=== PATIENT | male | born 1955 | race African-American/Black ===

== ENCOUNTER 2019-08-31 13:48 | Emergency (ER) | payer MEDICARE, OTHER ==
[~2019-08-31] VITALS: Ht 180.3 cm; Wt 124.7 kg
[~2019-08-31 13:48] MED LIST: HYDR-4076 PO; HYDR25TA4 PO; METH500T6 PO; ONDA4TAB5 PO; PANT40TA2 PO
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
[2019-08-31] MEDS ORDERED: ONDANSETRON HCL/PF 4 MG/2 ML VIAL ONE (14:47)
[2019-08-31] MEDS ORDERED: FAMOTIDINE/PF INJ 20 MG/2 ML VIAL IV ONE ×2 (14:47→15:00)
[2019-08-31] MEDS ORDERED: MORPHINE SULFATE INJ 4 MG/ML DISP.SYRIN ONE ×2 (14:47→16:28)
[2019-08-31] MEDS ORDERED: MORPHINE SULFATE INJ 2 MG/ML DISP.SYRIN IV ONE ×2 (15:00→16:30)
[2019-08-31] MEDS ORDERED: IV NS 0.9% 1,000 ML BAG IV ONE (15:00)
[2019-08-31] MEDS ORDERED: ONDANSETRON HCL/PF 4 MG/2 ML VIAL IVP ONE (15:00)
--- NOTE | 2019-08-31 15:54 | NUR ---
RADIUS CORNER MACHINE OPERATOR AT BEDSIDE FOR EVAL.
[2019-08-31 16:09] LABS: BASOPHILS % (AUTO) 0.5 % (0.0-2.0); HEMATOCRIT 46 % (39-51); LYMPHOCYTES % (AUTO) 15.8 % (20.0-44.0); MEAN CORPUSCULAR HGB CONC 33 g/dl (31.0-36.0); MEAN CORPUSCULAR VOLUME 98 fL (80-96); MONOCYTES # (AUTO) 0.6 /CMM (0.1-1.30); MONOCYTES % (AUTO) 8.9 % (2.0-12.0); NEUTROPHILS # (AUTO) 4.8 /CMM (1.8-8.9); NEUTROPHILS % (AUTO) 74.8 % (43.0-81.0); PLATELET COUNT (AUTO) 224 /CMM (150-450); RED BLOOD CELL COUNT(AUTO) 4.66 MIL/uL (4.5-6.0); WHITE BLOOD COUNT (AUTO) 6.4 K/uL (4.3-11.0)
[2019-08-31 16:18] LABS: CALCIUM, SERUM 10.1 mg/dL (8.5-10.1); CARBON DIOXIDE 18 mmol/L (21-32); CHLORIDE 106 mmol/L (98-107); CREATININE 1.2 mg/dL (0.6-1.3); GLUCOSE 101 mg/dL (74-106); POTASSIUM 3.6 mmol/L (3.5-5.1); SODIUM SERUM 141 mmol/L (136-145); UREA NITROGEN, BLOOD 11 mg/dL (7-18)
[2019-08-31 16:24] LABS: ALANINE AMINOTRANSFERASE 21 U/L (12-78); ALBUMIN 4.2 g/dL (3.4-5.0); ALKALINE PHOSPHATASE 81 U/L (46-116); ASPARTATE AMINOTRANSFERASE 15 U/L (15-37); BILIRUBIN,DIRECT 0.2 mg/dL (0.0-0.2); BILIRUBIN,TOTAL 0.8 mg/dL (0.2-1.0); LIPASE 108 U/L (73-393); TOTAL PROTEIN, SERUM 7.6 g/dL (6.4-8.2)
[2019-08-31] MEDS ORDERED: IOHEXOL-300 100 ML VIAL IV ONE (16:24)
[2019-08-31] MEDS ORDERED: CT SWABBABLE VALVE TRANS SET 1 EA INFUS.SET MC ONE (16:25)
[2019-08-31] MEDS ORDERED: IV NS 0.9% 250 ML IV ONE (16:25)
--- NOTE | 2019-08-31 16:37 | NUR ---
IV LINE ON L WRIST 20G WAS ACCIDENTALLY DISLODGE BY PT. NEW IV LINE OBTAINED ON R AC 20G.
--- NOTE | 2019-08-31 16:40 | NUR ---
PT TO RADIOLOGY
[2019-08-31] MEDS ORDERED: HYDROMORPHONE 1 MG/1 ML DISP.SYRIN ONE (17:41)
[2019-08-31] MEDS ORDERED: METOCLOPRAMIDE HCL 10 MG/2 ML VIAL ONE (17:41)
--- NOTE | 2019-08-31 17:48 | NUR ---
EKG AT BEDSIDE PER MD ORDERED
[2019-08-31] MEDS ORDERED: hydrALAZINE HCL IV 20 MG VIAL ONE (17:59)
[2019-08-31] MEDS ORDERED: HYDROMORPHONE 1 MG/1 ML DISP.SYRIN IV ONE (18:00)
[2019-08-31] MEDS ORDERED: METOCLOPRAMIDE HCL 10 MG/2 ML VIAL IV ONE (18:00)
[2019-08-31] MEDS ORDERED: hydrALAZINE HCL IV 20 MG VIAL IV ONE (18:00)
[2019-08-31] MEDS ORDERED: LABETALOL HCL IV 100MG VIAL ONE (18:37)
--- NOTE | 2019-08-31 18:41 | NUR ---
HOOK AND EYE MACHINE OPERATOR AT BEDSIDE FOR L KNEE XRAY.
[2019-08-31] MEDS ORDERED: LABETALOL HCL IV 100MG VIAL IV ONE (19:00)
--- NOTE | 2019-08-31 19:20 | NUR ---
PO CHALLENGE TOLERATED BY PT WITHOUT ANY FURTHER NAUSEA NOR VOMMITING.
[2019-08-31 19:30] VITALS: BP 173/72
--- NOTE | 2019-08-31 20:15 | NUR ---
Patient discharged to home in stable condition. Written and verbal after care instructions given. Patient verbalizes understanding of instruction.IV removed. Catheter intact and site benign. Pressure and 4x4 applied to site. No bleeding noted. Pt ambulatory with a steady gait
--- NOTE | 2019-08-31 20:22 | NUR ---
PT PICKED UP BY
== END 2019-08-31 20:21 | disposition home or self-care (01) ==
LOC: ER 13:53
DX: R10.10 Upper abdominal pain, unspecified (principal); I10 Essential (primary) hypertension; R11.2 Nausea with vomiting, unspecified; E11.9 Type 2 diabetes mellitus without complications; Z90.49 Acquired absence of other specified parts of digestive tract; Z86.73 Personal history of transient ischemic attack (TIA), and cerebral infarction without residual deficits; Z88.0 Allergy status to penicillin; Z79.899 Other long term (current) drug therapy
CPT/HCPCS: 36415; 73564 ×2; 74177; 80048; 80076; 83690; 84484; 85025; 93005; 96361; 96374 ×2; 96375; 99285; J0360; J1170; J2270 ×2; J2405; J2765; J3490 ×2; J7030; J7050; Q9967

== ENCOUNTER 2022-08-01 08:25 | Inpatient (IN) | payer BC, OTHER ==
[~2022-08-01] VITALS: Ht 170.2 cm; Wt 114.8 kg
[2022-08-01 08:38] LABS: BASOPHILS % (AUTO) 0.5 % (0.0-2.0); EOSINOPHILS % (AUTO) 0.7 % (0.0-6.0); HEMATOCRIT 45 % (39-51); HEMOGLOBIN 14.7 g/dL (13.5-17.5); LYMPHOCYTES # (AUTO) 1.7 K/uL (0.8-4.8); LYMPHOCYTES % (AUTO) 25.4 % (20.0-44.0); MEAN CORPUSCULAR HGB CONC 33 g/dl (31.0-36.0); MEAN CORPUSCULAR VOLUME 95 fL (80-96); MONOCYTES # (AUTO) 0.6 K/uL (0.1-1.30); NEUTROPHILS # (AUTO) 4.2 K/uL (1.8-8.9); NEUTROPHILS % (AUTO) 64.4 % (43.0-81.0); PLATELET COUNT (AUTO) 289 K/uL (150-450); RED BLOOD CELL COUNT(AUTO) 4.76 MIL/uL (4.5-6.0); WHITE BLOOD COUNT (AUTO) 6.6 K/uL (4.3-11.0)
[2022-08-01] MEDS ORDERED: IOHEXOL-350 100 ML VIAL IV ONE (08:40)
[2022-08-01] MEDS ORDERED: IV NS 0.9% 250 ML IV ONE (08:40)
[2022-08-01 08:47] LABS: CALCIUM, SERUM 10.6 mg/dL (8.5-10.1); CARBON DIOXIDE 23 mmol/L (21-32); CHLORIDE 107 mmol/L (98-107); CREATININE 1.4 mg/dL (0.6-1.3); GLUCOSE 144 mg/dL (74-106); POTASSIUM 3.9 mmol/L (3.5-5.1); SODIUM SERUM 142 mmol/L (136-145); UREA NITROGEN, BLOOD 7 mg/dL (7-18)
[2022-08-01 08:53] LABS: ALANINE AMINOTRANSFERASE 28 U/L (12-78); ALBUMIN 3.8 g/dL (3.4-5.0); ALKALINE PHOSPHATASE 91 U/L (46-116); ASPARTATE AMINOTRANSFERASE 17 U/L (15-37); BILIRUBIN,DIRECT 0.2 mg/dL (0.0-0.2); BILIRUBIN,TOTAL 0.7 mg/dL (0.2-1.0); TOTAL PROTEIN, SERUM 7.7 g/dL (6.4-8.2)
[2022-08-01 09:39] LABS: ALCOHOL, BLOOD < 3 mg/dL (0-10); SERUM AMMONIA 18 umol/L (11-32)
[2022-08-01 09:53] LABS: THYROID STIMULATING HORMONE 0.706 uIU/mL (0.358-3.74)
[2022-08-01 10:11] LABS: BILIRUBIN,URINE NEGATIVE (NEGATIVE); COLOR,URINE YELLOW (YELLOW); LEUKOCYTE ESTERASE ,URINE NEGATIVE (NEGATIVE); NITRITE, URINE NEGATIVE (NEGATIVE); PH,URINE 6.5 (5.0-8.0); PROTEIN,URINE TRACE mg/dl (NEGATIVE); UGLUCOSE NEGATIVE (NEGATIVE); UROBILINOGEN,URINE 0.2 EU/dL (0.2)
[2022-08-01 10:14] LABS: BACTERIA,URINE Rare /HPF (None Seen); SQUAMOUS EPITHELIAL CELL,UR Few /HPF (None Seen); WBC,URINE 0-2 /HPF (0-3)
[2022-08-01] MEDS ORDERED: ONDANSETRON HCL/PF 4 MG/2 ML VIAL ONE (10:53)
[2022-08-01] MEDS ORDERED: ONDANSETRON HCL/PF - ER 4 MG/2 ML VIAL IV ONE (11:00)
[2022-08-01] MEDS ORDERED: PROCHLORPERAZINE EDISYLATE 10 MG/2 ML VIAL ONE (12:54)
[2022-08-01] MEDS ORDERED: MORPHINE SULFATE INJ 2 MG/ML DISP.SYRIN ONE (12:54)
[2022-08-01] MEDS ORDERED: MORPHINE SULFATE INJ 2 MG/ML DISP.SYRIN IV ONE ×2 (13:00→18:10)
[2022-08-01] MEDS ORDERED: PROCHLORPERAZINE EDISYLATE 10 MG/2 ML VIAL IVP ONE (13:00)
[2022-08-01] MEDS ORDERED: IV NS 0.9% 1,000 ML BAG IV ONE (13:00)
[2022-08-01] MEDS ORDERED: IV 1/2NS 1000 ML 1,000 ML IV ONE (14:00)
[2022-08-01] MEDS: ENOXAPARIN SODIUM 40 MG/0.4 ML DISP.SYRIN SQ SCH (15:01)
[2022-08-01 15:26] LABS: CREATININE 1.4 mg/dL (0.6-1.3); POTASSIUM 4.1 mmol/L (3.5-5.1)
[2022-08-01 15:32] LABS: BILIRUBIN,TOTAL 0.7 mg/dL (0.2-1.0)
[2022-08-01 15:39] LABS: THYROID STIMULATING HORMONE 0.622 uIU/mL (0.358-3.74)
[2022-08-01 16:00] VITALS: BP 190/78
[2022-08-01] MEDS ORDERED: hydrALAZINE HCL IV 20 MG VIAL IV ONE ×2 (17:00→20:30)
[2022-08-01] MEDS: ONDANSETRON HCL/PF 4 MG/2 ML VIAL IV PRN (18:12)
[2022-08-01 20:00] VITALS: BP 220/90
[2022-08-01] MEDS: MORPHINE SULFATE INJ 2 MG/ML DISP.SYRIN IV PRN (20:31)
[2022-08-01 21:30] VITALS: BP 180/89
[2022-08-01] MEDS: ATORVASTATIN 10 MG TABLET PO SCH (22:53)
[2022-08-02] VITALS: BP 178/88
[2022-08-02] MEDS: ONDANSETRON HCL/PF 4 MG/2 ML VIAL IV PRN (00:42)
[2022-08-02] MEDS: MORPHINE SULFATE INJ 2 MG/ML DISP.SYRIN IV PRN ×4 (03:39→23:33)
[2022-08-02 04:00] VITALS: BP 190/90
[2022-08-02 07:04] LABS: BASOPHILS # (AUTO) 0.1 K/uL (0.0-0.2); BASOPHILS % (AUTO) 0.5 % (0.0-2.0); HEMATOCRIT 44 % (39-51); HEMOGLOBIN 14.7 g/dL (13.5-17.5); LYMPHOCYTES # (AUTO) 1.8 K/uL (0.8-4.8); LYMPHOCYTES % (AUTO) 13.2 % (20.0-44.0); MEAN CORPUSCULAR HGB CONC 33 g/dl (31.0-36.0); MEAN CORPUSCULAR VOLUME 95 fL (80-96); MONOCYTES # (AUTO) 1.4 K/uL (0.1-1.30); MONOCYTES % (AUTO) 10.3 % (2.0-12.0); NEUTROPHILS # (AUTO) 10.6 K/uL (1.8-8.9); PLATELET COUNT (AUTO) 289 K/uL (150-450); WHITE BLOOD COUNT (AUTO) 13.9 K/uL (4.3-11.0)
[2022-08-02 07:10] LABS: CALCIUM, SERUM 9.9 mg/dL (8.5-10.1); CREATININE 1.1 mg/dL (0.6-1.3); POTASSIUM 3.5 mmol/L (3.5-5.1)
[2022-08-02 08:00] VITALS: BP 167/92
[2022-08-02] MEDS: PANTOPRAZOLE 40 MG TABLET.DR PO SCH (08:36)
[2022-08-02] MEDS: ASPIRIN 81 MG TAB.CHEW PO SCH (08:36)
[2022-08-02 12:00] VITALS: BP 155/77
[2022-08-02 16:00] VITALS: BP 190/83
[2022-08-02] MEDS: ENOXAPARIN SODIUM 40 MG/0.4 ML DISP.SYRIN SQ SCH (17:35)
[2022-08-02 20:00] VITALS: BP 178/100
[2022-08-02] MEDS: ATORVASTATIN 10 MG TABLET PO SCH (21:25)
[2022-08-02] MEDS: hydrALAZINE HCL 25 MG TABLET PO SCH (23:32)
[2022-08-03] VITALS: BP 186/99
[2022-08-03 04:00] VITALS: BP 170/74
[2022-08-03] MEDS: hydrALAZINE HCL 25 MG TABLET PO SCH ×3 (04:16→22:23)
[2022-08-03] MEDS: MORPHINE SULFATE INJ 2 MG/ML DISP.SYRIN IV PRN ×3 (06:50→20:23)
[2022-08-03 08:49] LABS: BASOPHILS # (AUTO) 0.1 K/uL (0.0-0.2); BASOPHILS % (AUTO) 0.8 % (0.0-2.0); EOSINOPHILS % (AUTO) 0.7 % (0.0-6.0); HEMATOCRIT 47 % (39-51); HEMOGLOBIN 15.6 g/dL (13.5-17.5); LYMPHOCYTES # (AUTO) 1.4 K/uL (0.8-4.8); LYMPHOCYTES % (AUTO) 13.2 % (20.0-44.0); MEAN CORPUSCULAR HGB CONC 33 g/dl (31.0-36.0); MEAN CORPUSCULAR VOLUME 94 fL (80-96); MONOCYTES # (AUTO) 0.9 K/uL (0.1-1.30); MONOCYTES % (AUTO) 8.5 % (2.0-12.0); NEUTROPHILS # (AUTO) 8.2 K/uL (1.8-8.9); NEUTROPHILS % (AUTO) 76.8 % (43.0-81.0); PLATELET COUNT (AUTO) 277 K/uL (150-450); RED BLOOD CELL COUNT(AUTO) 4.98 MIL/uL (4.5-6.0); WHITE BLOOD COUNT (AUTO) 10.7 K/uL (4.3-11.0)
[2022-08-03] MEDS: ASPIRIN 81 MG TAB.CHEW PO SCH ×2 (09:00→10:04)
[2022-08-03] MEDS: PANTOPRAZOLE 40 MG TABLET.DR PO SCH (09:09)
[2022-08-03 09:14] LABS: CALCIUM, SERUM 9.8 mg/dL (8.5-10.1); CREATININE 1.1 mg/dL (0.6-1.3); PHOSPHORUS 2.2 mg/dL (2.5-4.9); POTASSIUM 3.2 mmol/L (3.5-5.1)
[2022-08-03] MEDS ORDERED: POTASSIUM CHLORIDE 20 MEQ TAB.PRT.SR PO ONE (10:00)
[2022-08-03] MEDS: HYDROCHLOROTHIAZIDE 25 MG TABLET PO SCH (10:05)
[2022-08-03] MEDS ORDERED: GADOTERATE MEGLUMINE 10 MMOL/20 ML VIAL IV ONE (11:11)
[2022-08-03 12:32] VITALS: BP_SYST 147; BP_SYST 161; BP_DIAS 80; BP_DIAS 88
[2022-08-03] MEDS: METHOCARBAMOL (500MG) 500 MG TABLET PO SCH (13:02)
[2022-08-03] MEDS: ENOXAPARIN SODIUM 40 MG/0.4 ML DISP.SYRIN SQ SCH (13:04)
[2022-08-03 16:00] VITALS: BP 150/79
[2022-08-03] MEDS ORDERED: K PHOS NEUTRAL 250 MG TABLET PO ONE (17:00)
[2022-08-03 20:00] VITALS: BP 151/83
[2022-08-03] MEDS: ATORVASTATIN 10 MG TABLET PO SCH (22:22)
[2022-08-04] VITALS: BP 131/92
[2022-08-04] MEDS: MORPHINE SULFATE INJ 2 MG/ML DISP.SYRIN IV PRN ×4 (03:39→23:49)
[2022-08-04 04:08] VITALS: BP 148/80
[2022-08-04] MEDS: hydrALAZINE HCL 25 MG TABLET PO SCH ×3 (05:18→21:09)
[2022-08-04 06:36] LABS: BASOPHILS % (AUTO) 0.5 % (0.0-2.0); EOSINOPHILS % (AUTO) 0.3 % (0.0-6.0); HEMATOCRIT 48 % (39-51); HEMOGLOBIN 16.1 g/dL (13.5-17.5); LYMPHOCYTES # (AUTO) 1.3 K/uL (0.8-4.8); LYMPHOCYTES % (AUTO) 12.7 % (20.0-44.0); MEAN CORPUSCULAR HGB CONC 34 g/dl (31.0-36.0); MEAN CORPUSCULAR VOLUME 92 fL (80-96); MONOCYTES % (AUTO) 19.3 % (2.0-12.0); NEUTROPHILS # (AUTO) 6.9 K/uL (1.8-8.9); NEUTROPHILS % (AUTO) 67.2 % (43.0-81.0); PLATELET COUNT (AUTO) 283 K/uL (150-450); WHITE BLOOD COUNT (AUTO) 10.3 K/uL (4.3-11.0)
[2022-08-04 06:45] LABS: CALCIUM, SERUM 10.1 mg/dL (8.5-10.1); CREATININE 1.2 mg/dL (0.6-1.3); MAGNESIUM 1.9 mg/dL (1.8-2.4); PHOSPHORUS 3.1 mg/dL (2.5-4.9); POTASSIUM 3.1 mmol/L (3.5-5.1)
[2022-08-04 07:42] LABS: LYMPHOCYTES % (MANUAL) 15 % (16-48); MONOCYTES % (MANUAL) 15 % (0-11.0); NEUTROPHILS % (MANUAL) 69 (42-76); REACTIVE LYMPHOCYTES 1 % (0-0)
[2022-08-04 08:00] VITALS: BP 159/90
[2022-08-04] MEDS: HYDROCHLOROTHIAZIDE 25 MG TABLET PO SCH (08:59)
[2022-08-04] MEDS: ASPIRIN 81 MG TAB.CHEW PO SCH (08:59)
[2022-08-04] MEDS: PANTOPRAZOLE 40 MG TABLET.DR PO SCH (09:00)
[2022-08-04] MEDS: METHOCARBAMOL (500MG) 500 MG TABLET PO SCH (09:00)
[2022-08-04] MEDS ORDERED: POTASSIUM CHLORIDE 20 MEQ TAB.PRT.SR PO ONE ×2 (09:00→17:00)
[2022-08-04 12:00] VITALS: BP 156/92
[2022-08-04] MEDS ORDERED: TEMAZEPAM 7.5 MG CAPSULE PO PRN (12:00)
[2022-08-04] MEDS: ENOXAPARIN SODIUM 40 MG/0.4 ML DISP.SYRIN SQ SCH (14:00)
[2022-08-04 16:00] VITALS: BP 162/87
[2022-08-04 20:00] VITALS: BP 146/74
[2022-08-04] MEDS: ATORVASTATIN 10 MG TABLET PO SCH (21:09)
[2022-08-05] VITALS (24 sets, daily range): BP systolic 135–218; BP diastolic 55–85
[2022-08-05] MEDS: IV NS 0.9% 1,000 ML IV SCH ×2 (06:39→16:13)
[2022-08-05] MEDS: hydrALAZINE HCL 25 MG TABLET PO SCH ×3 (06:43→20:02)
[2022-08-05] MEDS: MORPHINE SULFATE INJ 2 MG/ML DISP.SYRIN IV PRN ×2 (06:44→19:26)
[2022-08-05] MEDS: PANTOPRAZOLE 40 MG TABLET.DR PO SCH (07:30)
[2022-08-05 07:32] LABS: BASOPHILS % (AUTO) 0.6 % (0.0-2.0); EOSINOPHILS % (AUTO) 0.4 % (0.0-6.0); HEMATOCRIT 50 % (39-51); LYMPHOCYTES # (AUTO) 1.2 K/uL (0.8-4.8); LYMPHOCYTES % (AUTO) 14.2 % (20.0-44.0); MEAN CORPUSCULAR HGB CONC 32 g/dl (31.0-36.0); MEAN CORPUSCULAR VOLUME 94 fL (80-96); MONOCYTES # (AUTO) 2.1 K/uL (0.1-1.30); MONOCYTES % (AUTO) 24.3 % (2.0-12.0); NEUTROPHILS # (AUTO) 5.2 K/uL (1.8-8.9); NEUTROPHILS % (AUTO) 60.5 % (43.0-81.0); PLATELET COUNT (AUTO) 287 K/uL (150-450); RED BLOOD CELL COUNT(AUTO) 5.27 MIL/uL (4.5-6.0); WHITE BLOOD COUNT (AUTO) 8.5 K/uL (4.3-11.0)
[2022-08-05 07:57] LABS: CALCIUM, SERUM 9.8 mg/dL (8.5-10.1); CREATININE 1.4 mg/dL (0.6-1.3); MAGNESIUM 2.1 mg/dL (1.8-2.4); PHOSPHORUS 3.6 mg/dL (2.5-4.9); POTASSIUM 3.8 mmol/L (3.5-5.1)
[2022-08-05] MEDS ORDERED: ANESTHESIA TRAY IN PYXIS 1 EA TRAY MC ONE (08:33)
[2022-08-05] MEDS ORDERED: LIDOCAINE 1% INJ 50 ML MDV IJ ONE (08:33)
[2022-08-05] MEDS: ASPIRIN 81 MG TAB.CHEW PO SCH (09:00)
[2022-08-05] MEDS: HYDROCHLOROTHIAZIDE 25 MG TABLET PO SCH (09:00)
[2022-08-05] MEDS: METHOCARBAMOL (500MG) 500 MG TABLET PO SCH (09:00)
[2022-08-05] MEDS: CHOLESTYRAMINE/ASPARTAME 4 G/PKT PACKET PO SCH (09:00)
[2022-08-05] MEDS ORDERED: ALBUMIN 5% 500 ML IV ONE (09:30)
[2022-08-05] MEDS ORDERED: FENTANYL PF 100MCG/2ML AMPUL ONE (09:31)
[2022-08-05] MEDS ORDERED: KETAMINE HCL (500MG/10ML) 50 MG/ML VIAL ONE (09:31)
[2022-08-05] MEDS ORDERED: FAMOTIDINE/PF INJ 20 MG/2 ML VIAL IV ONE (09:32)
[2022-08-05] MEDS ORDERED: LANOLIN/MIN OIL/PETROLAT,WHT 3.5 GM TUBE ONE (09:32)
[2022-08-05] MEDS ORDERED: LABETALOL HCL IV 100MG VIAL ONE (09:32)
[2022-08-05] MEDS ORDERED: ROCURONIUM BROMIDE 50 MG/5 ML ONE (09:32)
[2022-08-05] MEDS ORDERED: CLINDAMYCIN 900 MG/6 ML VIAL ONE (10:00)
[2022-08-05] MEDS ORDERED: NTG 50 MG/D5W250 ML BOTTL 250 ML IV PRN (10:00)
[2022-08-05] MEDS ORDERED: MIDAZOLAM HCL 2 MG/2ML VIAL ONE (10:06)
[2022-08-05] MEDS ORDERED: Magnesium 1 GM/2 ML VIAL ONE (10:10)
[2022-08-05 10:50] LABS: LYMPHOCYTES % (MANUAL) 16 % (16-48); MONOCYTES % (MANUAL) 19 % (0-11.0); NEUTROPHILS % (MANUAL) 65 (42-76)
[2022-08-05] MEDS ORDERED: HEPARIN SODIUM, PORCINE 5000 UNITS/1 ML VIAL ONE (11:42)
[2022-08-05 11:56] LABS: ABG PH 7.336 (7.350-7.450); ABG PO2 251.2 mmHg (75.0-100.0); COHb 0.4 % (0.5-1.5); MetHb 0.5 % (0.0-1.5); O2Hb 98.4 % (94.0-97.0); SITE, ABG Right Radial
[2022-08-05] MEDS ORDERED: DOPamine 400MG/D5W 250ML RTU 250 ML ONE (11:57)
[2022-08-05] MEDS ORDERED: HYDROMORPHONE INJ 2 MG/ML DISP.SYRIN ONE (12:12)
[2022-08-05] MEDS ORDERED: CELLULOSE,OXIDIZED 1 EACH EACH MC ONE (12:33)
[2022-08-05] MEDS ORDERED: PHENYLEPHRINE 10 MG/ML VIAL IV ONE (13:00)
[2022-08-05] MEDS ORDERED: ROPIVACAINE HCL 0.5% 5 MG/ML 30ML VIAL ONE (13:00)
[2022-08-05] MEDS ORDERED: protAMINE SULFATE 10 MG/ML VIAL IV ONE (13:11)
[2022-08-05] MEDS: CLONIDINE HCL 0.1 MG TABLET PO PRN ×2 (15:24→21:53)
[2022-08-05] MEDS ORDERED: hydrALAZINE HCL IV 20 MG VIAL IV ONE ×2 (16:00→16:02)
[2022-08-05] MEDS: NICARDIPINE IN NACL, ISO-OSM 200 ML IV PRN ×5 (16:31→22:39)
[2022-08-05 16:57] LABS: BASOPHILS # (AUTO) 0.1 K/uL (0.0-0.2); BASOPHILS % (AUTO) 0.8 % (0.0-2.0); EOSINOPHILS % (AUTO) 0.4 % (0.0-6.0); HEMATOCRIT 41 % (39-51); HEMOGLOBIN 13.6 g/dL (13.5-17.5); LYMPHOCYTES # (AUTO) 1.4 K/uL (0.8-4.8); LYMPHOCYTES % (AUTO) 13.2 % (20.0-44.0); MEAN CORPUSCULAR HGB CONC 33 g/dl (31.0-36.0); MEAN CORPUSCULAR VOLUME 93 fL (80-96); MONOCYTES # (AUTO) 1.9 K/uL (0.1-1.30); MONOCYTES % (AUTO) 17.7 % (2.0-12.0); NEUTROPHILS # (AUTO) 7.1 K/uL (1.8-8.9); NEUTROPHILS % (AUTO) 67.9 % (43.0-81.0); PLATELET COUNT (AUTO) 259 K/uL (150-450); RED BLOOD CELL COUNT(AUTO) 4.42 MIL/uL (4.5-6.0); WHITE BLOOD COUNT (AUTO) 10.5 K/uL (4.3-11.0)
[2022-08-05 17:13] LABS: ALBUMIN 3.5 g/dL (3.4-5.0); BILIRUBIN,TOTAL 1.3 mg/dL (0.2-1.0); CALCIUM, SERUM 9.3 mg/dL (8.5-10.1); CREATININE 1.4 mg/dL (0.6-1.3); TOTAL PROTEIN, SERUM 6.7 g/dL (6.4-8.2)
[2022-08-05 17:54] LABS: LYMPHOCYTES % (MANUAL) 24 % (16-48); MONOCYTES % (MANUAL) 17 % (0-11.0); NEUTROPHILS % (MANUAL) 59 (42-76)
[2022-08-05] MEDS ORDERED: LABETALOL HCL IV 100MG VIAL IV ONE (19:00)
[2022-08-05] MEDS: AMLODIPINE BESYLATE 5 MG TABLET PO SCH (19:59)
[2022-08-05] MEDS: CLINDAMYCIN 900 MG in IV D5W 50 ML IV SCH (20:00)
[2022-08-05] MEDS: CARVEDILOL 3.125 MG TABLET PO SCH (20:00)
[2022-08-05] MEDS: ATORVASTATIN 10 MG TABLET PO SCH (21:35)
[2022-08-05] MEDS: HYDROCODONE/APAP 5/325MG TABLET PO PRN (21:49)
[2022-08-06] VITALS (41 sets, daily range): BP systolic 96–187; BP diastolic 40–116
[2022-08-06] MEDS: NICARDIPINE IN NACL, ISO-OSM 200 ML IV PRN ×10 (00:42→21:45)
[2022-08-06] MEDS: MORPHINE SULFATE INJ 2 MG/ML DISP.SYRIN IV PRN ×4 (01:25→19:44)
[2022-08-06] MEDS: CLINDAMYCIN 900 MG in IV D5W 50 ML IV SCH (03:19)
[2022-08-06] MEDS: hydrALAZINE HCL 25 MG TABLET PO SCH ×3 (05:02→21:09)
[2022-08-06 05:15] LABS: BASOPHILS # (AUTO) 0.1 K/uL (0.0-0.2); BASOPHILS % (AUTO) 0.9 % (0.0-2.0); EOSINOPHILS % (AUTO) 0.8 % (0.0-6.0); HEMATOCRIT 38 % (39-51); HEMOGLOBIN 12.6 g/dL (13.5-17.5); LYMPHOCYTES # (AUTO) 1.3 K/uL (0.8-4.8); LYMPHOCYTES % (AUTO) 12.7 % (20.0-44.0); MEAN CORPUSCULAR HGB CONC 33 g/dl (31.0-36.0); MEAN CORPUSCULAR VOLUME 93 fL (80-96); MONOCYTES # (AUTO) 1.8 K/uL (0.1-1.30); NEUTROPHILS # (AUTO) 6.7 K/uL (1.8-8.9); NEUTROPHILS % (AUTO) 67.6 % (43.0-81.0); PLATELET COUNT (AUTO) 224 K/uL (150-450); RED BLOOD CELL COUNT(AUTO) 4.11 MIL/uL (4.5-6.0); WHITE BLOOD COUNT (AUTO) 9.9 K/uL (4.3-11.0)
[2022-08-06 05:39] LABS: CREATININE 1.4 mg/dL (0.6-1.3); MAGNESIUM 1.9 mg/dL (1.8-2.4); PHOSPHORUS 3.4 mg/dL (2.5-4.9); POTASSIUM 3.8 mmol/L (3.5-5.1)
[2022-08-06 05:58] LABS: BAND % (MANUAL) 1 % (0.0-5.0); LYMPHOCYTES % (MANUAL) 12 % (16-48); MONOCYTES % (MANUAL) 10 % (0-11.0); MYELOCYTES % 1 % (0-0); NEUTROPHILS % (MANUAL) 76 (42-76)
[2022-08-06] MEDS: HYDROCODONE/APAP 5/325MG TABLET PO PRN ×3 (06:20→21:14)
[2022-08-06] MEDS: HYDROCHLOROTHIAZIDE 25 MG TABLET PO SCH (08:12)
[2022-08-06] MEDS: PANTOPRAZOLE 40 MG TABLET.DR PO SCH (08:12)
[2022-08-06] MEDS: ASPIRIN 81 MG TAB.CHEW PO SCH (08:14)
[2022-08-06] MEDS: AMLODIPINE BESYLATE 5 MG TABLET PO SCH ×2 (08:14→16:27)
[2022-08-06] MEDS: CARVEDILOL 3.125 MG TABLET PO SCH (08:15)
[2022-08-06] MEDS: CHOLESTYRAMINE/ASPARTAME 4 G/PKT PACKET PO SCH (08:15)
[2022-08-06] MEDS: METHOCARBAMOL (500MG) 500 MG TABLET PO SCH (08:15)
[2022-08-06] MEDS: ENOXAPARIN SODIUM 40 MG/0.4 ML DISP.SYRIN SQ SCH (08:17)
[2022-08-06] MEDS: DOCUSATE SODIUM 100 MG CAPSULE PO SCH ×3 (10:17→16:27)
[2022-08-06] MEDS: LIDOCAINE 5% (PATCH) 1 EA PATCH TP SCH (10:17)
[2022-08-06] MEDS: LABETALOL HCL (100MG) 100 MG TABLET PO SCH ×2 (14:58→21:09)
[2022-08-06] MEDS ORDERED: hydrALAZINE HCL 25 MG TABLET PO SCH (21:00)
[2022-08-06] MEDS: ATORVASTATIN 10 MG TABLET PO SCH (21:08)
[2022-08-07] VITALS (36 sets, daily range): BP systolic 101–214; BP diastolic 58–106
[2022-08-07] MEDS: MORPHINE SULFATE INJ 2 MG/ML DISP.SYRIN IV PRN ×4 (01:36→20:28)
[2022-08-07] MEDS: hydrALAZINE HCL 25 MG TABLET PO SCH ×3 (04:07→21:09)
[2022-08-07 05:20] LABS: BASOPHILS # (AUTO) 0.1 K/uL (0.0-0.2); BASOPHILS % (AUTO) 0.9 % (0.0-2.0); EOSINOPHILS % (AUTO) 1.8 % (0.0-6.0); HEMATOCRIT 37 % (39-51); HEMOGLOBIN 12.2 g/dL (13.5-17.5); LYMPHOCYTES # (AUTO) 1.7 K/uL (0.8-4.8); LYMPHOCYTES % (AUTO) 17.5 % (20.0-44.0); MEAN CORPUSCULAR HGB CONC 33 g/dl (31.0-36.0); MEAN CORPUSCULAR VOLUME 94 fL (80-96); MONOCYTES # (AUTO) 1.2 K/uL (0.1-1.30); NEUTROPHILS # (AUTO) 6.4 K/uL (1.8-8.9); NEUTROPHILS % (AUTO) 66.8 % (43.0-81.0); PLATELET COUNT (AUTO) 234 K/uL (150-450); RED BLOOD CELL COUNT(AUTO) 3.97 MIL/uL (4.5-6.0); WHITE BLOOD COUNT (AUTO) 9.6 K/uL (4.3-11.0)
[2022-08-07 05:32] LABS: CALCIUM, SERUM 9.2 mg/dL (8.5-10.1); CREATININE 1.3 mg/dL (0.6-1.3); MAGNESIUM 1.7 mg/dL (1.8-2.4); POTASSIUM 3.6 mmol/L (3.5-5.1)
[2022-08-07] MEDS: CLONIDINE HCL 0.1 MG TABLET PO PRN (05:41)
[2022-08-07] MEDS: HYDROCODONE/APAP 5/325MG TABLET PO PRN ×4 (05:42→22:09)
[2022-08-07] MEDS ORDERED: MAGNESIUM OXIDE 400 MG TABLET PO ONE (08:00)
[2022-08-07] MEDS: DOCUSATE SODIUM 100 MG CAPSULE PO SCH ×3 (08:16→16:04)
[2022-08-07] MEDS: PANTOPRAZOLE 40 MG TABLET.DR PO SCH (08:16)
[2022-08-07] MEDS: ASPIRIN 81 MG TAB.CHEW PO SCH (08:16)
[2022-08-07] MEDS: LABETALOL HCL (100MG) 100 MG TABLET PO SCH ×2 (08:17→21:09)
[2022-08-07] MEDS: LIDOCAINE 5% (PATCH) 1 EA PATCH TP SCH (08:17)
[2022-08-07] MEDS: AMLODIPINE BESYLATE 5 MG TABLET PO SCH ×2 (08:17→16:03)
[2022-08-07] MEDS: METHOCARBAMOL (500MG) 500 MG TABLET PO SCH (08:17)
[2022-08-07] MEDS: CHOLESTYRAMINE/ASPARTAME 4 G/PKT PACKET PO SCH (08:17)
[2022-08-07] MEDS: HYDROCHLOROTHIAZIDE 25 MG TABLET PO SCH (08:17)
[2022-08-07] MEDS: ENOXAPARIN SODIUM 40 MG/0.4 ML DISP.SYRIN SQ SCH (08:18)
[2022-08-07] MEDS: NICARDIPINE IN NACL, ISO-OSM 200 ML IV PRN (09:46)
[2022-08-07] MEDS: ATORVASTATIN 10 MG TABLET PO SCH (21:08)
[2022-08-08] VITALS (21 sets, daily range): BP systolic 99–160; BP diastolic 57–87
[2022-08-08] MEDS: MORPHINE SULFATE INJ 2 MG/ML DISP.SYRIN IV PRN ×3 (02:42→21:07)
[2022-08-08] MEDS: hydrALAZINE HCL 25 MG TABLET PO SCH ×3 (04:39→21:05)
[2022-08-08] MEDS: HYDROCODONE/APAP 5/325MG TABLET PO PRN ×2 (04:39→11:14)
[2022-08-08 05:26] LABS: BASOPHILS # (AUTO) 0.1 K/uL (0.0-0.2); EOSINOPHILS % (AUTO) 1.7 % (0.0-6.0); HEMATOCRIT 36 % (39-51); LYMPHOCYTES # (AUTO) 1.7 K/uL (0.8-4.8); LYMPHOCYTES % (AUTO) 15.7 % (20.0-44.0); MEAN CORPUSCULAR HGB CONC 33 g/dl (31.0-36.0); MEAN CORPUSCULAR VOLUME 94 fL (80-96); MONOCYTES # (AUTO) 1.6 K/uL (0.1-1.30); MONOCYTES % (AUTO) 14.7 % (2.0-12.0); NEUTROPHILS # (AUTO) 7.1 K/uL (1.8-8.9); NEUTROPHILS % (AUTO) 66.9 % (43.0-81.0); PLATELET COUNT (AUTO) 232 K/uL (150-450); RED BLOOD CELL COUNT(AUTO) 3.87 MIL/uL (4.5-6.0); WHITE BLOOD COUNT (AUTO) 10.7 K/uL (4.3-11.0)
[2022-08-08 05:35] LABS: CALCIUM, SERUM 9.2 mg/dL (8.5-10.1); CREATININE 1.1 mg/dL (0.6-1.3); MAGNESIUM 1.6 mg/dL (1.8-2.4); PHOSPHORUS 3.1 mg/dL (2.5-4.9); POTASSIUM 3.8 mmol/L (3.5-5.1)
[2022-08-08] MEDS: LIDOCAINE 5% (PATCH) 1 EA PATCH TP SCH (08:28)
[2022-08-08] MEDS: CHOLESTYRAMINE/ASPARTAME 4 G/PKT PACKET PO SCH (08:29)
[2022-08-08] MEDS: PANTOPRAZOLE 40 MG TABLET.DR PO SCH (08:29)
[2022-08-08] MEDS: DOCUSATE SODIUM 100 MG CAPSULE PO SCH ×3 (08:29→17:08)
[2022-08-08] MEDS: HYDROCHLOROTHIAZIDE 25 MG TABLET PO SCH (08:29)
[2022-08-08] MEDS: AMLODIPINE BESYLATE 5 MG TABLET PO SCH ×2 (08:29→17:08)
[2022-08-08] MEDS: ASPIRIN 81 MG TAB.CHEW PO SCH (08:29)
[2022-08-08] MEDS: LABETALOL HCL (100MG) 100 MG TABLET PO SCH ×2 (08:29→21:06)
[2022-08-08] MEDS: METHOCARBAMOL (500MG) 500 MG TABLET PO SCH (08:29)
[2022-08-08] MEDS: ENOXAPARIN SODIUM 40 MG/0.4 ML DISP.SYRIN SQ SCH (08:31)
[2022-08-08] MEDS ORDERED: MAGNESIUM OXIDE 400 MG TABLET PO ONE (11:00)
[2022-08-08] MEDS: ATORVASTATIN 10 MG TABLET PO SCH (21:05)
[2022-08-09] MEDS: HYDROCODONE/APAP 5/325MG TABLET PO PRN ×2 (00:43→08:40)
[2022-08-09] MEDS: hydrALAZINE HCL 25 MG TABLET PO SCH ×3 (05:39→21:10)
[2022-08-09] MEDS: MORPHINE SULFATE INJ 2 MG/ML DISP.SYRIN IV PRN ×3 (05:40→21:09)
[2022-08-09 07:00] VITALS: BP 124/64
[2022-08-09] MEDS: PANTOPRAZOLE 40 MG TABLET.DR PO SCH (08:27)
[2022-08-09] MEDS: CHOLESTYRAMINE/ASPARTAME 4 G/PKT PACKET PO SCH (08:28)
[2022-08-09] MEDS: DOCUSATE SODIUM 100 MG CAPSULE PO SCH ×3 (08:28→16:34)
[2022-08-09] MEDS: LIDOCAINE 5% (PATCH) 1 EA PATCH TP SCH (08:28)
[2022-08-09] MEDS: ASPIRIN 81 MG TAB.CHEW PO SCH (08:28)
[2022-08-09] MEDS: HYDROCHLOROTHIAZIDE 25 MG TABLET PO SCH (08:31)
[2022-08-09] MEDS: METHOCARBAMOL (500MG) 500 MG TABLET PO SCH (08:32)
[2022-08-09] MEDS: LABETALOL HCL (100MG) 100 MG TABLET PO SCH ×2 (08:32→21:10)
[2022-08-09] MEDS: AMLODIPINE BESYLATE 5 MG TABLET PO SCH ×2 (08:32→16:34)
[2022-08-09] MEDS: ENOXAPARIN SODIUM 40 MG/0.4 ML DISP.SYRIN SQ SCH (08:38)
[2022-08-09 16:22] VITALS: BP 142/61
[2022-08-09 20:39] VITALS: BP 142/59
[2022-08-09 21:10] VITALS: BP 142/59
[2022-08-09] MEDS: ATORVASTATIN 10 MG TABLET PO SCH (21:10)
== END 2022-08-09 22:45 | DRG 252 ==
LOC: ER 08:34 → TELE1 12:56 → ICU 08-05 14:33 → MED 08-08 15:31
PROVIDERS: ADMIT Student in an Organized Health Care Education/Training Program
PROC: 03CK0ZZ Extirpation of Matter from Right Internal Carotid Artery, Open Approach (ICD-10-PCS; principal; 2022-08-05)
PROC: 03UK0JZ Supplement Right Internal Carotid Artery with Synthetic Substitute, Open Approach (ICD-10-PCS; 2022-08-05)
PROC: 0DB68ZX Excision of Stomach, Via Natural or Artificial Opening Endoscopic, Diagnostic (ICD-10-PCS; 2022-08-05)
DX: I16.9 Hypertensive crisis, unspecified (principal); N17.0 Acute kidney failure with tubular necrosis; E87.20 Acidosis, unspecified; I67.4 Hypertensive encephalopathy; D68.59 Other primary thrombophilia; I65.21 Occlusion and stenosis of right carotid artery; I10 Essential (primary) hypertension; I16.0 Hypertensive urgency; Z20.822 Contact with and (suspected) exposure to COVID-19; K29.70 Gastritis, unspecified, without bleeding; Z86.73 Personal history of transient ischemic attack (TIA), and cerebral infarction without residual deficits; Z87.19 Personal history of other diseases of the digestive system; Z90.49 Acquired absence of other specified parts of digestive tract; Z88.0 Allergy status to penicillin; Z79.899 Other long term (current) drug therapy; I25.10 Atherosclerotic heart disease of native coronary artery without angina pectoris; E78.5 Hyperlipidemia, unspecified; Z79.82 Long term (current) use of aspirin; G89.29 Other chronic pain; Z91.199 Patient's noncompliance with other medical treatment and regimen due to unspecified reason; E66.01 Morbid (severe) obesity due to excess calories; Z68.39 Body mass index [BMI] 39.0-39.9, adult; K06.9 Disorder of gingiva and edentulous alveolar ridge, unspecified; R73.03 Prediabetes; K22.0 Achalasia of cardia
CPT/HCPCS: 36415; 36600; 70450-TC; 70496-TC; 70498-TC; 70553-TC; 71045-TC; 71250-TC; 80048-TC; 80053-TC; 80061-TC; 80076-TC; 81001; 82140-TC; 82803-TC; 82962-TC; 83605-TC; 83735-TC; 84100-TC; 84443-TC; 84484-TC; 85025-TC; 85730-TC; 86850-TC; 87040-TC; 88305-TC; 88313-TC; 88342; 92526; 92611-TC; 93307-TC; 95819-TC; 97110-TC; 97530-TC; A4223; A6209; A9575; C1768; G0378; G0480; J0360; J0780; J1100; J1170; J1265; J1644; J1650; J2250; J2270; J2370; J2405; J2704; J2720; J2765; J2795; J3010; J3475; J3490; J7030; J7040; J7042; J7050; J7060; P9045; Q9967

== ENCOUNTER 2023-02-23 16:16 | Emergency (ER) | payer BC, OTHER ==
[~2023-02-23] VITALS: Ht 182.9 cm; Wt 115.7 kg
[2023-02-23] MEDS ORDERED: ONDANSETRON HCL/PF 4 MG/2 ML VIAL ONE (17:06)
[2023-02-23] MEDS ORDERED: MORPHINE SULFATE INJ 4 MG/ML DISP.SYRIN ONE (17:07)
[2023-02-23] MEDS: MORPHINE SULFATE INJ 2 MG/ML DISP.SYRIN IV ONE (17:20)
[2023-02-23] MEDS: ONDANSETRON HCL/PF 4 MG/2 ML VIAL IVP ONE (17:21)
[2023-02-23] MEDS: IV NS 0.9% 1,000 ML BAG IV ONE (17:30)
[2023-02-23 17:33] LABS: BASOPHILS # (AUTO) 0.1 K/uL (0.0-0.2); BASOPHILS % (AUTO) 0.9 % (0.0-2.0); EOSINOPHILS % (AUTO) 0.5 % (0.0-6.0); HEMATOCRIT 52 % (39-51); HEMOGLOBIN 17.2 g/dL (13.5-17.5); LYMPHOCYTES # (AUTO) 2.3 K/uL (0.8-4.8); LYMPHOCYTES % (AUTO) 31.2 % (20.0-44.0); MEAN CORPUSCULAR HEMOGLOBIN 31 PG (26.0-33.0); MEAN CORPUSCULAR HGB CONC 33 g/dl (31.0-36.0); MEAN CORPUSCULAR VOLUME 94 fL (80-96); MONOCYTES # (AUTO) 0.7 K/uL (0.1-1.30); MONOCYTES % (AUTO) 9.9 % (2.0-12.0); NEUTROPHILS # (AUTO) 4.3 K/uL (1.8-8.9); NEUTROPHILS % (AUTO) 57.5 % (43.0-81.0); PLATELET COUNT (AUTO) 271 K/uL (150-450); RED BLOOD CELL COUNT(AUTO) 5.53 MIL/uL (4.5-6.0); RED CELL DISTRIBUTION WIDTH 13.3 % (11.5-15.0); WHITE BLOOD COUNT (AUTO) 7.5 K/uL (4.3-11.0)
[2023-02-23 17:56] LABS: ALANINE AMINOTRANSFERASE 38 U/L (12-78); ALBUMIN 4.6 g/dL (3.4-5.0); ALKALINE PHOSPHATASE 85 U/L (46-116); ASPARTATE AMINOTRANSFERASE 27 U/L (15-37); BILIRUBIN,DIRECT 0.3 mg/dL (0.0-0.2); BILIRUBIN,TOTAL 1.6 mg/dL (0.2-1.0); CALCIUM, SERUM 10.6 mg/dL (8.5-10.1); CARBON DIOXIDE 16 mmol/L (21-32); CHLORIDE 99 mmol/L (98-107); CREATININE 1.6 mg/dL (0.6-1.3); GLUCOSE 89 mg/dL (74-106); SODIUM SERUM 132 mmol/L (136-145); TOTAL PROTEIN, SERUM 8.8 g/dL (6.4-8.2); UREA NITROGEN, BLOOD 19 mg/dL (7-18)
[2023-02-23] MEDS ORDERED: LIDOCAINE 5% (PATCH) 1 EA PATCH TP ONE (20:02)
[2023-02-23] MEDS: LIDOCAINE 5% (PATCH) 1 EA PATCH TP ONE (20:03)
[2023-02-23] MEDS ORDERED: ACETAMINOPHEN ES 500 MG TABLET ONE (20:17)
[2023-02-23] MEDS ORDERED: FAMOTIDINE/PF INJ 20 MG/2 ML VIAL IV ONE (20:17)
[2023-02-23] MEDS: FAMOTIDINE/PF INJ 20 MG/2 ML VIAL IV ONE (20:19)
[2023-02-23] MEDS: ACETAMINOPHEN ES 500 MG TABLET PO ONE (20:19)
[2023-02-23] MEDS ORDERED: ONDA4TAB5 PO (20:34)
[2023-02-23] MEDS ORDERED: ACET-2605 PO (20:34)
[2023-02-23 20:52] VITALS: BP 128/78; TEMP 98; O2SAT 98
== END 2023-02-23 20:53 | disposition home or self-care (01) ==
LOC: ER 16:47
DX: R55 Syncope and collapse (principal); R10.9 Unspecified abdominal pain; R11.2 Nausea with vomiting, unspecified; M25.562 Pain in left knee; I10 Essential (primary) hypertension; Z90.49 Acquired absence of other specified parts of digestive tract; Z88.0 Allergy status to penicillin
CPT/HCPCS: 99285; 96374; 93971; 71045; 96375; 96361; 93005; 85025; 80048; 83690; 80076; 36415; 84484; J2270; J3490; J2405; J7030

== ENCOUNTER 2023-08-10 14:43 | Emergency (ER) | payer BC, OTHER ==
[~2023-08-10] VITALS: Ht 182.9 cm; Wt 113.4 kg
[~2023-08-10 14:43] MED LIST changes: +ACET-2605 PO
== END 2023-08-10 16:06 ==
LOC: ER 14:45
DX: Z00.00 Encounter for general adult medical examination without abnormal findings (principal); I10 Essential (primary) hypertension; Z88.0 Allergy status to penicillin; Z88.8 Allergy status to other drugs, medicaments and biological substances

== ENCOUNTER 2023-10-27 06:55 | Emergency (ER) | payer BC, MEDICAID ==
[~2023-10-27] VITALS: Ht 182.9 cm; Wt 111.1 kg
[2023-10-27] MEDS ORDERED: ACETAMINOPHEN 325 MG TABLET ONE ×2 (07:53→07:57)
[2023-10-27] MEDS: ACETAMINOPHEN 325 MG TABLET PO ONE (07:59)
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
--- NOTE | 2023-10-27 08:43 | NUR ---
Patient discharged to home in stable condition. Written and verbal after care instructions given. Patient verbalizes understanding of instruction.
[2023-10-27 08:45] VITALS: BP 145/75; TEMP 98; O2SAT 99
== END 2023-10-27 08:45 | disposition home or self-care (01) ==
LOC: ER 06:58
DX: S13.4XXA Sprain of ligaments of cervical spine, initial encounter (principal); S16.1XXA Strain of muscle, fascia and tendon at neck level, initial encounter; S39.012A Strain of muscle, fascia and tendon of lower back, initial encounter; R20.0 Anesthesia of skin; M79.605 Pain in left leg; I10 Essential (primary) hypertension; Z86.69 Personal history of other diseases of the nervous system and sense organs; Z86.79 Personal history of other diseases of the circulatory system; Z87.19 Personal history of other diseases of the digestive system; Z90.49 Acquired absence of other specified parts of digestive tract; Z88.0 Allergy status to penicillin; Z88.8 Allergy status to other drugs, medicaments and biological substances; V43.92XA Unspecified car occupant injured in collision with other type car in traffic accident, initial encounter; Y93.89 Activity, other specified; Y92.488 Other paved roadways as the place of occurrence of the external cause; Y99.8 Other external cause status
CPT/HCPCS: 72125-TC; 72131-TC; 73030-TC

== ENCOUNTER 2023-12-03 10:13 | Emergency (ER) | payer BC, MEDICAID ==
[~2023-12-03] VITALS: Ht 182.9 cm; Wt 114.3 kg
[2023-12-03 10:20] VITALS: BP 157/87; TEMP 98.2
[2023-12-03] MEDS ORDERED: LIDOCAINE 1%-EPI 1:100,000 20 ML VIAL ONE (10:52)
[2023-12-03] MEDS ORDERED: TDAP [DIPH/PERTUSSIS/TET] 0.5 ML VIAL IM ONE (10:53)
[2023-12-03] MEDS: LIDOCAINE 1%-EPI 1:100,000 20 ML VIAL TP ONE (10:55)
[2023-12-03] MEDS: TDAP [DIPH/PERTUSSIS/TET] 0.5 ML VIAL IM ONE (10:59)
[2023-12-03 11:27] VITALS: O2SAT 100
== END 2023-12-03 11:28 | disposition home or self-care (01) ==
LOC: ER 10:31
DX: S61.411A Laceration without foreign body of right hand, initial encounter (principal); I10 Essential (primary) hypertension; Z79.899 Other long term (current) drug therapy; Z86.73 Personal history of transient ischemic attack (TIA), and cerebral infarction without residual deficits; Z88.0 Allergy status to penicillin; Z90.49 Acquired absence of other specified parts of digestive tract; Z86.79 Personal history of other diseases of the circulatory system; Z87.19 Personal history of other diseases of the digestive system; W20.8XXA Other cause of strike by thrown, projected or falling object, initial encounter; Y93.89 Activity, other specified; Y92.89 Other specified places as the place of occurrence of the external cause; Y99.8 Other external cause status
CPT/HCPCS: 12002; 90471; 90715; 99283; A6403; J3490

== ENCOUNTER 2024-01-08 06:23 | Emergency (ER) | payer BC, MEDICAID ==
[~2024-01-08] VITALS: Ht 182.9 cm; Wt 117.9 kg
[2024-01-08 06:35] VITALS: BP 136/75; TEMP 98; O2SAT 99
== END 2024-01-08 06:48 | disposition home or self-care (01) ==
LOC: ER 06:23
DX: S61.411D Laceration without foreign body of right hand, subsequent encounter (principal); E11.9 Type 2 diabetes mellitus without complications; I10 Essential (primary) hypertension; Z48.02 Encounter for removal of sutures; Z79.899 Other long term (current) drug therapy; Z86.73 Personal history of transient ischemic attack (TIA), and cerebral infarction without residual deficits; Z88.0 Allergy status to penicillin; Z90.49 Acquired absence of other specified parts of digestive tract; Z86.79 Personal history of other diseases of the circulatory system; Z87.19 Personal history of other diseases of the digestive system; X58.XXXD Exposure to other specified factors, subsequent encounter

== ENCOUNTER 2024-05-04 13:54 | Inpatient (IN) | payer BC, MEDICAID ==
[~2024-05-04] VITALS: Ht 182.9 cm; Wt 112.5 kg
[2024-05-04] MEDS ORDERED: LORAZEPAM INJ 2 MG/ML VIAL ONE (14:51)
[2024-05-04] MEDS: LORAZEPAM INJ 2 MG/ML VIAL IV ONE (14:53)
[2024-05-04 15:00] LABS: BASOPHILS % (AUTO) 0.5 % (0.0-2.0); EOSINOPHILS # (AUTO) 0.1 K/uL (0.0-0.7); HEMATOCRIT 54 % (39-51); HEMOGLOBIN 18.4 g/dL (13.5-17.5); LYMPHOCYTES # (AUTO) 2.1 K/uL (0.8-4.8); LYMPHOCYTES % (AUTO) 28.3 % (20.0-44.0); MEAN CORPUSCULAR HEMOGLOBIN 32 PG (26.0-33.0); MEAN CORPUSCULAR HGB CONC 34 g/dl (31.0-36.0); MEAN CORPUSCULAR VOLUME 94 fL (80-96); MONOCYTES # (AUTO) 1.2 K/uL (0.1-1.30); MONOCYTES % (AUTO) 15.4 % (2.0-12.0); NEUTROPHILS # (AUTO) 4.1 K/uL (1.8-8.9); NEUTROPHILS % (AUTO) 54.8 % (43.0-81.0); PLATELET COUNT (AUTO) 266 K/uL (150-450); RED BLOOD CELL COUNT(AUTO) 5.81 MIL/uL (4.5-6.0); RED CELL DISTRIBUTION WIDTH 14.1 % (11.5-15.0); WHITE BLOOD COUNT (AUTO) 7.6 K/uL (4.3-11.0)
[2024-05-04 15:10] LABS: SERUM AMMONIA 20 umol/L (11-32)
[2024-05-04 15:12] LABS: INR 1.12 (0.91-1.10); PARTIAL THROMBOPLASTIN TIME 30.7 SEC (24.3-34.3); PROTHROMBIN TIME 11.8 SECS (9.2-11.1)
[2024-05-04 15:13] LABS: APPEARANCE,URINE CLEAR (CLEAR); BILIRUBIN,URINE 1+ (NEGATIVE); BLOOD, URINE 1+ Ery/uL (NEGATIVE); COLOR,URINE YELLOW (YELLOW); KETONES,URINE TRACE mg/dL (NEGATIVE); LEUKOCYTE ESTERASE ,URINE NEGATIVE (NEGATIVE); NITRITE, URINE NEGATIVE (NEGATIVE); PROTEIN,URINE 2+ mg/dl (NEGATIVE); UGLUCOSE NEGATIVE (NEGATIVE); UROBILINOGEN,URINE 0.2 EU/dL (0.2)
[2024-05-04 15:15] LABS: ALANINE AMINOTRANSFERASE 29 U/L (12-78); ALBUMIN 4.5 g/dL (3.4-5.0); ALCOHOL, BLOOD < 3 mg/dL (0-10); ALKALINE PHOSPHATASE 104 U/L (46-116); ASPARTATE AMINOTRANSFERASE 35 U/L (15-37); BILIRUBIN,DIRECT 0.3 mg/dL (0.0-0.2); BILIRUBIN,TOTAL 1.6 mg/dL (0.2-1.0); CARBON DIOXIDE 23 mmol/L (21-32); CHLORIDE 100 mmol/L (98-107); CREATININE 1.5 mg/dL (0.6-1.3); GLUCOSE 95 mg/dL (74-106); POTASSIUM 3.5 mmol/L (3.5-5.1); SODIUM SERUM 133 mmol/L (136-145); TOTAL PROTEIN, SERUM 8.4 g/dL (6.4-8.2); UREA NITROGEN, BLOOD 17 mg/dL (7-18)
[2024-05-04 15:29] LABS: WBC,URINE NONE SEEN /HPF (0-3)
[2024-05-04 15:30] LABS: ADD URINE CULTURE YES; BACTERIA,URINE 2+ /HPF (None Seen); SQUAMOUS EPITHELIAL CELL,UR 0-2 /HPF (None Seen)
[2024-05-04 15:36] LABS: LYMPHOCYTES % (MANUAL) 36 % (16-48); MONOCYTES % (MANUAL) 12 % (0-11.0); NEUTROPHILS % (MANUAL) 52 (42-76); PLATELET ESTIMATE ADEQUATE
[2024-05-04 15:37] LABS: ANISOCYTOSIS 1+
[2024-05-04] MEDS ORDERED: IOHEXOL-350 100 ML VIAL IV ONE (15:59)
[2024-05-04] MEDS ORDERED: IV NS 0.9% 250 ML IV ONE (15:59)
[2024-05-04] MEDS ORDERED: CT SWABBABLE VALVE TRANS SET 1 EA INFUS.SET MC ONE (15:59)
[2024-05-04] MEDS ORDERED: AMLO-212 PO (16:42)
[2024-05-04] MEDS ORDERED: LABE100T5 PO (16:42)
[2024-05-04] MEDS ORDERED: GABA800T11 PO (16:42)
[2024-05-04] MEDS ORDERED: ONDANSETRON HCL/PF 4 MG/2 ML VIAL IVP PRN (18:30)
[2024-05-04] MEDS ORDERED: ACETAMINOPHEN 325 MG TABLET PO PRN (18:30)
[2024-05-04] MEDS ORDERED: Z GUARD REMEDY 4 OZ OINT TP PRN (18:30)
[2024-05-04] MEDS ORDERED: MAGNESIUM HYDROXIDE 30 ML UDC PO PRN (18:30)
[2024-05-04 20:15] VITALS: BP 128/100; TEMP 98.4; O2SAT 100
[2024-05-04 20:30] VITALS: BP 128/100; TEMP 98.4; O2SAT 100
[2024-05-04] MEDS: LORAZEPAM INJ 2 MG/ML VIAL IV PRN (20:40)
[2024-05-04] MEDS: IV NS 0.9% 1,000 ML IV PRN (20:53)
[2024-05-04] MEDS ORDERED: LEVETIRACETAM (500MG) 500 MG/5 ML VIAL IV ONE (20:58)
[2024-05-04] MEDS: GABAPENTIN 100 MG CAPSULE PO SCH (21:00)
[2024-05-04] MEDS: LEVETIRACETAM (500MG) 2,000 MG in IV NS 0.9% 80 ML IV ONE (21:10)
[2024-05-04] MEDS: ENOXAPARIN SODIUM 30 MG/0.3 ML DISP.SYRIN SQ SCH (21:25)
[2024-05-05] VITALS: BP_SYST 142; BP_SYST 143; BP_DIAS 73; TEMP 97.9; O2SAT 99
[2024-05-05 04:00] VITALS: BP 109/73; TEMP 97.5; O2SAT 98
[2024-05-05] MEDS: PANTOPRAZOLE 40 MG TABLET.DR PO SCH (07:30)
[2024-05-05] MEDS: LEVETIRACETAM (500MG) 500 MG in IV NS 0.9% 100 ML IV SCH (08:17)
[2024-05-05] MEDS: ASPIRIN 81 MG TAB.CHEW PO SCH (09:00)
[2024-05-05] MEDS: AMLODIPINE BESYLATE 5 MG TABLET PO SCH (09:00)
[2024-05-05] MEDS: LABETALOL HCL (100MG) 100 MG TABLET PO SCH (09:00)
[2024-05-05 09:32] VITALS: BP 140/95; TEMP 98.1; O2SAT 98
[2024-05-05 09:54] LABS: BASOPHILS % (AUTO) 0.5 % (0.0-2.0); EOSINOPHILS # (AUTO) 0.1 K/uL (0.0-0.7); EOSINOPHILS % (AUTO) 0.9 % (0.0-6.0); HEMATOCRIT 52 % (39-51); HEMOGLOBIN 16.9 g/dL (13.5-17.5); LYMPHOCYTES # (AUTO) 2.5 K/uL (0.8-4.8); LYMPHOCYTES % (AUTO) 35.1 % (20.0-44.0); MEAN CORPUSCULAR HEMOGLOBIN 31 PG (26.0-33.0); MEAN CORPUSCULAR HGB CONC 33 g/dl (31.0-36.0); MEAN CORPUSCULAR VOLUME 94 fL (80-96); MONOCYTES % (AUTO) 13.7 % (2.0-12.0); NEUTROPHILS # (AUTO) 3.6 K/uL (1.8-8.9); NEUTROPHILS % (AUTO) 49.8 % (43.0-81.0); PLATELET COUNT (AUTO) 219 K/uL (150-450); RED BLOOD CELL COUNT(AUTO) 5.49 MIL/uL (4.5-6.0); RED CELL DISTRIBUTION WIDTH 13.7 % (11.5-15.0); WHITE BLOOD COUNT (AUTO) 7.2 K/uL (4.3-11.0)
[2024-05-05 10:14] LABS: CALCIUM, SERUM 9.3 mg/dL (8.5-10.1); CREATININE 1.7 mg/dL (0.6-1.3); MAGNESIUM 2.1 mg/dL (1.8-2.4); PHOSPHORUS 3.8 mg/dL (2.5-4.9); POTASSIUM 3.3 mmol/L (3.5-5.1)
[2024-05-05 11:45] LABS: THYROID STIMULATING HORMONE 1.26 uIU/mL (0.358-3.74)
[2024-05-05 13:10] VITALS: BP 145/86; TEMP 98.2; O2SAT 98
[2024-05-05] MEDS: POTASSIUM CHLORIDE 20 MEQ TAB.PRT.SR PO SCH (18:41)
[2024-05-05] MEDS: MAG HYDROX/AL HYDROX/SIMETH 30 ML UDC PO PRN (21:40)
[2024-05-05 21:42] VITALS: BP 146/91; TEMP 98.4; O2SAT 100
[2024-05-05] MEDS: ZOLPIDEM TARTRATE 5 MG TABLET PO PRN (21:54)
[2024-05-05] MEDS ORDERED: LEVETIRACETAM (500MG) 500 MG/5 ML VIAL IV ONE (22:38)
[2024-05-06 00:37] VITALS: BP 125/73; TEMP 98.6; O2SAT 99
[2024-05-06 04:00] VITALS: BP 144/98; TEMP 97.5; O2SAT 99
[2024-05-06] MEDS: HYDROCODONE/APAP 5/325MG TABLET PO PRN (08:27)
[2024-05-06 08:37] VITALS: BP 127/97; TEMP 97.7; O2SAT 100
[2024-05-06] MEDS: LEVETIRACETAM (500MG) 2,000 MG in IV NS 0.9% 80 ML IV ONE (10:29)
[2024-05-06] MEDS ORDERED: LEVETIRACETAM (500MG) 1,000 MG in IV NS 0.9% 90 ML IV SCH (10:30)
[2024-05-06 13:06] VITALS: BP 137/82; TEMP 97.5; O2SAT 100
[2024-05-06 16:16] VITALS: BP 114/68; TEMP 97.7; O2SAT 100
[2024-05-06 20:00] VITALS: BP 134/70; TEMP 97.5; O2SAT 99
[2024-05-06] MEDS: LEVETIRACETAM (500MG) 1,000 MG in IV NS 0.9% 90 ML IV SCH (22:54)
[2024-05-07] VITALS: BP 143/76; TEMP 97.7; O2SAT 97
[2024-05-07 05:43] VITALS: BP 117/85; TEMP 98.8; O2SAT 97
[2024-05-07 08:00] VITALS: BP 142/80; TEMP 98.2; O2SAT 99
[2024-05-07] MEDS: GABAPENTIN 400 MG CAPSULE PO SCH (09:09)
[2024-05-07 09:10] VITALS: BP 144/81
[2024-05-07] MEDS ORDERED: HYDR-3972 PO (10:05)
[2024-05-07] MEDS ORDERED: LEVE1000 PO (10:05)
[2024-05-07] MEDS ORDERED: GABA800T11 PO (10:05)
== END 2024-05-07 14:55 | disposition home or self-care (01) | DRG 100 ==
LOC: ER 14:03 → MED 19:48 → TELE 21:56 → UNDODISIN 05-05 15:20 → TELE 05-05 20:55
PROVIDERS: ADMIT Nurse Practitioner Acute Care; ATTEND Nurse Practitioner Acute Care
DX: R56.9 Unspecified convulsions (principal); N17.0 Acute kidney failure with tubular necrosis; E87.1 Hypo-osmolality and hyponatremia; I16.0 Hypertensive urgency; I12.9 Hypertensive chronic kidney disease with stage 1 through stage 4 chronic kidney disease, or unspecified chronic kidney disease; N18.9 Chronic kidney disease, unspecified; E11.22 Type 2 diabetes mellitus with diabetic chronic kidney disease; Z86.73 Personal history of transient ischemic attack (TIA), and cerebral infarction without residual deficits; E78.5 Hyperlipidemia, unspecified; E66.9 Obesity, unspecified; Z68.34 Body mass index [BMI] 34.0-34.9, adult; M17.12 Unilateral primary osteoarthritis, left knee; I25.10 Atherosclerotic heart disease of native coronary artery without angina pectoris; Z90.49 Acquired absence of other specified parts of digestive tract; Z88.0 Allergy status to penicillin; Z79.899 Other long term (current) drug therapy; I65.22 Occlusion and stenosis of left carotid artery; Z98.62 Peripheral vascular angioplasty status; M19.90 Unspecified osteoarthritis, unspecified site; M54.32 Sciatica, left side
CPT/HCPCS: 36415; 70450-TC; 70496-TC; 70498-TC; 71045-TC; 80048-TC; 80061-TC; 80076-TC; 81001; 82140-TC; 82607-TC; 83735-TC; 83921; 84100-TC; 84425; 84439-TC; 84443-TC; 84484-TC; 85025-TC; 85730-TC; 87086-TC; 92526; 92611-TC; 97110-TC; 97112-TC; 97116-TC; 97164; 97530-TC; 97535-TC; A4223; G0378; G0480; J1650; J1953; J2060; J7030; J7050; Q9967

== ENCOUNTER 2024-08-02 04:52 | Inpatient (IN) | payer BC, MEDICAID ==
[~2024-08-02] VITALS: Ht 172.7 cm; Wt 95.3 kg
[~2024-08-02 04:52] MED LIST changes: -ACET-2605 PO; +AMLO-212 PO; +GABA800T11 PO; +HYDR-3972 PO; -HYDR-4076 PO; -HYDR25TA4 PO; +LABE100T5 PO; +LEVE1000 PO; -METH500T6 PO; -ONDA4TAB5 PO; -PANT40TA2 PO
[2024-08-02] MEDS ORDERED: ONDANSETRON HCL/PF 4 MG/2 ML VIAL ONE (05:29)
[2024-08-02] MEDS: IV NS 0.9% 500 ML BAG IV ONE (05:34)
[2024-08-02] MEDS: ONDANSETRON HCL/PF 4 MG/2 ML VIAL IVP ONE (05:35)
[2024-08-02 05:37] LABS: BASOPHILS # (AUTO) 0.1 K/uL (0.0-0.2); BASOPHILS % (AUTO) 2.2 % (0.0-2.0); EOSINOPHILS # (AUTO) 0.1 K/uL (0.0-0.7); EOSINOPHILS % (AUTO) 3.2 % (0.0-6.0); HEMATOCRIT 49 % (39-51); HEMOGLOBIN 15.9 g/dL (13.5-17.5); LYMPHOCYTES # (AUTO) 1.8 K/uL (0.8-4.8); LYMPHOCYTES % (AUTO) 42.3 % (20.0-44.0); MEAN CORPUSCULAR HEMOGLOBIN 31 PG (26.0-33.0); MEAN CORPUSCULAR HGB CONC 33 g/dl (31.0-36.0); MEAN CORPUSCULAR VOLUME 96 fL (80-96); MONOCYTES # (AUTO) 0.4 K/uL (0.1-1.30); MONOCYTES % (AUTO) 9.7 % (2.0-12.0); NEUTROPHILS # (AUTO) 1.9 K/uL (1.8-8.9); NEUTROPHILS % (AUTO) 42.6 % (43.0-81.0); PLATELET COUNT (AUTO) 283 K/uL (150-450); RED BLOOD CELL COUNT(AUTO) 5.08 MIL/uL (4.5-6.0); RED CELL DISTRIBUTION WIDTH 13.7 % (11.5-15.0); WHITE BLOOD COUNT (AUTO) 4.4 K/uL (4.3-11.0)
[2024-08-02 05:43] LABS: CALCIUM, SERUM 9.9 mg/dL (8.5-10.1); CARBON DIOXIDE 23 mmol/L (21-32); CHLORIDE 105 mmol/L (98-107); CREATININE 1.3 mg/dL (0.6-1.3); GLUCOSE 104 mg/dL (74-106); POTASSIUM 4.1 mmol/L (3.5-5.1); SODIUM SERUM 139 mmol/L (136-145); UREA NITROGEN, BLOOD 14 mg/dL (7-18)
[2024-08-02 05:49] LABS: ALANINE AMINOTRANSFERASE 23 U/L (12-78); ALBUMIN 4.4 g/dL (3.4-5.0); ALKALINE PHOSPHATASE 100 U/L (46-116); ASPARTATE AMINOTRANSFERASE 16 U/L (15-37); BILIRUBIN,DIRECT 0.2 mg/dL (0.0-0.2); BILIRUBIN,TOTAL 0.8 mg/dL (0.2-1.0); INR 1.04 (0.91-1.10); PARTIAL THROMBOPLASTIN TIME 28.2 SEC (24.3-34.3); TOTAL PROTEIN, SERUM 8.3 g/dL (6.4-8.2)
[2024-08-02 07:00] VITALS: BP_SYST 115; BP_SYST 158; BP_DIAS 75; BP_DIAS 82; TEMP 97.3; TEMP 97.9; O2SAT 100; O2SAT 94
[2024-08-02] MEDS ORDERED: GABA-536 PO (09:18)
[2024-08-02] MEDS ORDERED: ASPIRIN 325 MG TABLET ONE (10:33)
[2024-08-02] MEDS ORDERED: KETOROLAC TROMETHAMINE 15 MG/ML VIAL ONE (10:33)
[2024-08-02] MEDS: KETOROLAC TROMETHAMINE 15 MG/ML VIAL IV PRN (10:37)
[2024-08-02] MEDS: ASPIRIN 325 MG TABLET PO SCH (10:37)
[2024-08-02] MEDS ORDERED: ZOLPIDEM TARTRATE 5 MG TABLET PO PRN (11:30)
[2024-08-02] MEDS ORDERED: ACETAMINOPHEN 325 MG TABLET PO PRN (11:30)
[2024-08-02] MEDS ORDERED: ONDANSETRON HCL/PF 4 MG/2 ML VIAL IVP PRN (11:30)
[2024-08-02] MEDS ORDERED: LORAZEPAM INJ 2 MG/ML VIAL IV PRN (11:30)
[2024-08-02] MEDS ORDERED: MAG HYDROX/AL HYDROX/SIMETH 30 ML UDC PO PRN (11:30)
[2024-08-02] MEDS ORDERED: Z GUARD REMEDY 4 OZ OINT TP PRN (11:30)
[2024-08-02] MEDS ORDERED: MAGNESIUM HYDROXIDE 30 ML UDC PO PRN (11:30)
[2024-08-02 12:00] VITALS: BP 145/85; TEMP 98.8; O2SAT 99
[2024-08-02] MEDS: ENOXAPARIN SODIUM 40 MG/0.4 ML DISP.SYRIN SQ SCH (14:30)
[2024-08-02] MEDS: IV D5/0.45 NACL 1,000 ML IV PRN (14:31)
[2024-08-02 16:00] VITALS: BP 163/76; TEMP 98.2; O2SAT 98
[2024-08-02] MEDS: GABAPENTIN 400 MG CAPSULE PO SCH ×2 (17:00→22:00)
[2024-08-02 20:00] VITALS: BP 141/76; TEMP 98.1; O2SAT 96
[2024-08-02 21:39] VITALS: BP 141/76; TEMP 98.1; O2SAT 96
[2024-08-02 23:28] VITALS: BP 152/75
[2024-08-03 04:00] VITALS: BP 154/100; TEMP 98.2; O2SAT 100
[2024-08-03 04:17] VITALS: BP 154/100; TEMP 98.2; O2SAT 92
[2024-08-03 06:48] LABS: EOSINOPHILS # (AUTO) 0.2 K/uL (0.0-0.7); EOSINOPHILS % (AUTO) 4.1 % (0.0-6.0); HEMATOCRIT 45 % (39-51); HEMOGLOBIN 14.6 g/dL (13.5-17.5); LYMPHOCYTES % (AUTO) 41.8 % (20.0-44.0); MEAN CORPUSCULAR HEMOGLOBIN 32 PG (26.0-33.0); MEAN CORPUSCULAR HGB CONC 33 g/dl (31.0-36.0); MEAN CORPUSCULAR VOLUME 96 fL (80-96); MONOCYTES # (AUTO) 0.6 K/uL (0.1-1.30); MONOCYTES % (AUTO) 13.4 % (2.0-12.0); NEUTROPHILS # (AUTO) 1.9 K/uL (1.8-8.9); NEUTROPHILS % (AUTO) 40.7 % (43.0-81.0); PLATELET COUNT (AUTO) 267 K/uL (150-450); RED BLOOD CELL COUNT(AUTO) 4.64 MIL/uL (4.5-6.0); RED CELL DISTRIBUTION WIDTH 14.3 % (11.5-15.0); WHITE BLOOD COUNT (AUTO) 4.7 K/uL (4.3-11.0)
[2024-08-03 07:01] LABS: CALCIUM, SERUM 9.2 mg/dL (8.5-10.1); PHOSPHORUS 2.8 mg/dL (2.5-4.9); POTASSIUM 3.9 mmol/L (3.5-5.1)
[2024-08-03 07:16] LABS: THYROID STIMULATING HORMONE 0.9 uIU/mL (0.358-3.74)
[2024-08-03 07:59] LABS: APPEARANCE,URINE CLEAR (CLEAR); BILIRUBIN,URINE NEGATIVE (NEGATIVE); BLOOD, URINE NEGATIVE Ery/uL (NEGATIVE); COLOR,URINE YELLOW (YELLOW); KETONES,URINE TRACE mg/dL (NEGATIVE); LEUKOCYTE ESTERASE ,URINE NEGATIVE (NEGATIVE); NITRITE, URINE NEGATIVE (NEGATIVE); PROTEIN,URINE NEGATIVE (NEGATIVE); UGLUCOSE NEGATIVE (NEGATIVE); UROBILINOGEN,URINE 0.2 EU/dL (0.2)
[2024-08-03 08:00] VITALS: BP 167/89; TEMP 98.1; O2SAT 100
[2024-08-03 08:10] LABS: ADD URINE CULTURE NO; BACTERIA,URINE Rare /HPF (None Seen); RBC,URINE 0-2 /HPF (0-2); SQUAMOUS EPITHELIAL CELL,UR 0-2 /HPF (None Seen); WBC,URINE 0-2 /HPF (0-3)
[2024-08-03] MEDS: LABETALOL HCL (100MG) 100 MG TABLET PO SCH (09:00)
[2024-08-03] MEDS: ASPIRIN 81 MG TAB.CHEW PO SCH (09:00)
[2024-08-03] MEDS: AMLODIPINE BESYLATE 5 MG TABLET PO SCH (09:00)
[2024-08-03] MEDS: PANTOPRAZOLE 40 MG VIAL IV SCH (09:00)
== END 2024-08-03 10:20 | disposition left against medical advice (07) | DRG 555 ==
LOC: ER 04:54 → TELE 09:45
PROVIDERS: ADMIT Student in an Organized Health Care Education/Training Program; ATTEND Student in an Organized Health Care Education/Training Program
DX: M62.838 Other muscle spasm (principal); K85.90 Acute pancreatitis without necrosis or infection, unspecified; R56.9 Unspecified convulsions; R07.89 Other chest pain; I25.10 Atherosclerotic heart disease of native coronary artery without angina pectoris; Z86.73 Personal history of transient ischemic attack (TIA), and cerebral infarction without residual deficits; E11.9 Type 2 diabetes mellitus without complications; E66.01 Morbid (severe) obesity due to excess calories; E78.5 Hyperlipidemia, unspecified; I10 Essential (primary) hypertension; M19.90 Unspecified osteoarthritis, unspecified site; Z88.0 Allergy status to penicillin; Z79.82 Long term (current) use of aspirin; Z91.199 Patient's noncompliance with other medical treatment and regimen due to unspecified reason; I65.22 Occlusion and stenosis of left carotid artery; M54.32 Sciatica, left side; M54.31 Sciatica, right side; Z53.29 Procedure and treatment not carried out because of patient's decision for other reasons; Z90.49 Acquired absence of other specified parts of digestive tract; Z68.31 Body mass index [BMI] 31.0-31.9, adult
CPT/HCPCS: 36415; 70450-TC; 71045-TC; 80048-TC; 80061-TC; 80076-TC; 81001; 82962-TC; 83690-TC; 83735-TC; 84100-TC; 84443-TC; 84484-TC; 85025-TC; 85730-TC; 93307-TC; 97112-TC; 97116-TC; 97530-TC; A4223; G0378; J1650; J1885; J2405; J2470; J3490; J7040